=== PATIENT | male | born 1980 | race African-American/Black ===

== ENCOUNTER 2017-03-02 19:34 | Emergency (ER) | payer SELFPAY ==
[2017-03-02 20:45] VITALS: BP 106/61
[2017-03-02 21:36] LABS: BILIRUBIN,URINE SMALL (NEG); GLUCOSE,URINE NEGATIVE (NEG); NITRITE,URINE NEGATIVE (NEG); PH,URINE 5.5; PROTEIN,URINE 100 mg/dL (NEG-TRACE)
--- NOTE | 2017-03-02 21:36 | RAD ---
PROCEDURE Grayscale and color Doppler testicular sonogram. HISTORY Left testicular pain and swelling. TECHNIQUE Grayscale and color Doppler sonographic images of the testes with spectral waveform analysis was performed. COMPARISON None. FINDINGS Right testis measures 5.1 x 3.1 x 2.2 cm. The left testis measures 4.2 x 3.5 x 1.9 cm. No focal testicular parenchymal lesion is seen. There is normal symmetric blood flow within both testes. There is a small right hydrocele. There is a moderate left varicocele, corresponding with the location of palpable concern. The epididymides are unremarkable IMPRESSION 1. Large left varicocele at the site of reported palpable concern. 2. Small right hydrocele. 3. Otherwise, relatively unremarkable testicular sonogram. Electronically signed by: Dorys Jarrett (Mar 02, 2017 21:34:43)
[2017-03-02 21:50] LABS: RBC,URINE OCC /HPF (0-2)
[2017-03-02 21:51] LABS: BACTERIA,URINE FEW /HPF (0-FEW); SQUAMOUS EPITHELIAL CELL,UR FEW /LPF
--- NOTE | 2017-03-02 22:15 | PHYS DOC ---
Past Medical History Past Medical History: Other Additional Past Medical Histor: NOHEMY Past Surgical History: No Surgical History Alcohol Use: Heavy Additional Information: WHISKEY DAILY Drug Use: None Adult General Chief Complaint Chief Complaint: TESTICULAR PAIN OR INJURY HPI HPI Patient is a 36 year old male who presents with left testicular pain. Patient reports about one week ago he noticed a lump in his left testicle which is painful. Denies other symptoms including fevers or chills, nausea or vomiting, abdominal pain, dysuria, discharge, genital rashes. No history of recent trauma or heavy lifting. Has been taking ibuprofen for pain. Does not have a primary care physician. Review of Systems Review of Systems Constitutional: Denies fever or chills HENT: Denies nasal congestion Respiratory: Denies cough or shortness of breath Cardiovascular: Denies chest pain GI: Denies abdominal pain, nausea, vomiting : Denies dysuria or hematuria , reports testicular mass Musculoskeletal: Denies back pain or joint pain Integument: Denies rash or skin lesions Neurologic: Denies headache Allergies Allergies Allergies Coded Allergies Type Severity Reaction Last Updated Verified No Known Drug Allergies 03/02/17 No Physical Exam Physical Exam Constitutional: Well developed, well nourished, no acute distress, non-toxic appearance. HENT: Normocephalic, atraumatic, bilateral external ears normal, oropharynx moist, nose normal. Eyes: conjunctiva normal, no discharge. Cardiovascular: no edema. Lungs & Thorax: no respiratory distress. Abdomen: soft, nontender, nondistended. : normal appearing male genitalia with circumcised penis, left testicle superolaterally there is approx 1 cm mobile mass, no inguinal tenderness or swelling, right testicle normal exam Skin: Warm, dry, no erythema, no rash. Extremities: No deformity Neurologic: Alert and oriented X 3 Current Patient Data Vital Signs Vital Signs Date Time Temp Pulse Resp B/P Pulse Ox O2 Delivery O2 Flow Rate FiO2 03/02/17 22:00 94 95 Room Air 03/02/17 20:45 106/61 03/02/17 19:40 99.0 16 99.0 Lab Values Laboratory Tests Test 03/02/17 20:05 Urine Collection Type Unknown Urine Color Yellow Urine Clarity Clear Urine pH 5.5 Urine Specific Whittaker 1.025 Urine Protein 100mg/dL (NEG-TRACE) Urine Glucose (UA) Negativemg/dL (NEG) Urine Ketones (Stick) Negativemg/dL (NEG) Urine Blood Negative (NEG) Urine Nitrite Negative (NEG) Urine Bilirubin Small (NEG) Urine Urobilinogen Dipstick 1.0mg/dL (0.2 mg/dL) Urine Leukocyte Esterase Small (NEG) Urine RBC Occ/HPF (0-2) Urine WBC 1-4/HPF (0-4) Urine Squamous Epithelial Cells Few/LPF Urine Bacteria Few/HPF (0-FEW) Urine Hyaline Casts Few/HPF Urine Mucus Marked/LPF EKG EKG [] Radiology/Procedures Radiology/Procedures [] Course & Med Decision Making Course & Med Decision Making Pertinent Labs and Imaging studies reviewed. (See chart for details) The patient presents with testicular mass. US shows varicocele, UA unremarkable. Recommend ibuprofen. Referral to Dr. Garcia in urology clinic. 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 Nguyen in primary care clinic. Come back for severe pain, uncontrolled vomiting, high fever, any otherwise worsening condition. Discharged home in stable condition. [] Dragon Disclaimer Dragon Disclaimer This electronic medical record was generated, in whole or in part, using a voice recognition dictation system. Departure Departure Impression: Primary Impression: Varicocele Disposition: 01 HOME, SELF-CARE Condition: STABLE Referrals: GUERLINE GARCIA PRATIP B MD Patient Instructions: Testicular Problems and Self-Exam Additional Instructions: You were seen in the department today for testicular pain. Ultrasound showed a varicocele which is a collection of veins. Okay to take ibuprofen for pain. Follow-up as needed with Dr. Garcia in the urology clinic if symptoms continue. Also make an appointment with Dr. Nguyen for general health maintenance. Come back for high fever, sudden severe worsening testicular pain, uncontrolled vomiting, any otherwise worsening condition. KATHRIN PRYOR MD Mar 02, 2017 22:15
== END 2017-03-02 22:29 | disposition home or self-care (01) ==
LOC: ER 19:34
DX: I86.1 Scrotal varices (principal); F10.10 Alcohol abuse, uncomplicated
CPT/HCPCS: 76870; 81001; 87086; 99285-25